=== PATIENT | male | born 2000 | race Caucasian/White ===

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

== ENCOUNTER 2022-05-27 14:42 | Emergency (ER) | payer BC, SELFPAY ==
[2022-05-27] VITALS (24 sets, daily range): BP systolic 131–175; BP diastolic 68–87; PULSE 79–109; RESP 10–28; TEMP 36.6–37.1; O2SAT 94–100
--- NOTE | 2022-05-27 14:45 | DI.RAD_ITS ---
Exam(s) XR CHEST 2V PA LATERAL EXAM: XR CHEST 2V PA LATERAL CLINICAL HISTORY: Left side pain, R/O Pneumo TECHNIQUE: 2D digital imaging was performed of the chest. Two images were obtained. PA and lateral views were obtained. COMPARISON: No exams were available for comparison FINDINGS: MEDIASTINUM: Normal. HEART: Normal. PULMONARY VASCULATURE: Normal. LUNGS: Clear. PLEURAL SPACE: No pleural effusion or pneumothorax. BONE:Within normal limits for the patient's age. OTHER FINDINGS:Normal. IMPRESSION: No acute pulmonary findings. DATA REPOSITORY: RADIATION DOSE DELIVERED:
--- NOTE | 2022-05-27 14:45 | RT.EKG_ITS ---
APPROVED REPORT Exam: Resting ECG Reason for Exam: chest pain Patient Location: E HR:95 bpm ECG Measurements Heart Rate 95 AXIS SC 145 P 39 QRSd 85 QRS 44 QT 346 T 42 QTc 435 Conclusion Sinus rhythm...normal P axis, V-rate 60- 99 ST elev, probable normal early repol pattern...ST elevation, age<55. Sinus. Normal axis. No STEMI. I have reviewed and interpreted ECG and agree with software generated interpretation.
--- NOTE | 2022-05-27 15:07 | W.ED.GENAD ---
Discharge Plan Disposition Patient Disposition: HOME Condition: Stable Discharge Details Clinical Impression: Acute epigastric pain, Elevated liver transaminase level Primary Care Provider: Tim Muse ED Provider: Katt Agosto Home Meds and New Rx's Prescriptions: No Action No Known Home Meds Discharge Instructions Additional Instructions: Please follow-up for ultrasound with persistent discomfort Stay away from fatty foods, caffeine, tomato, and citrus until you are feeling symptomatically improved Follow-up with your doctor next week Have ordered you an outpatient ultrasound, with persistent pain I recommend following up for ultrasound imaging She develop fever, chills, uncontrolled vomiting, or with any new or worsening complaints, please present to the emergency department for reassessment Referrals: Tim Muse MD [Primary Care Provider] - Discharge Data Discharge Date/Time-TO BE ENTERED AT DEPARTURE: 05/27/22 17:01 Medical Decision Making <Nancy Brown NP - Last Filed: 05/28/22 09:13> 21-year-old male presents to the ER with a chief complaint of sudden onset of midepigastric upper abdominal pain which occurred just prior to arrival. Patient reports that he was sitting when this started he does endorse some shortness of breath with the pain. He rates it at an 8 out of 10 positive nausea no vomiting no diarrhea. He describes pain as a pressure denies any radiation. Does have surgical history of appendectomy and a hernia repair at age 4. Denies smoking no drugs or alcohol. Upon initial presentation patient appears anxious, mildly tachypneic, lung sounds auscultated bilaterally with no wheezing no stridor. Cardiac work-up ordered including D-dimer and lipase. Chest x-ray to rule out pneumothorax. EKG obtained by department staff upon initial presentation. Differential diagnosis includes but not limited to PE, pneumothorax, CAD, cholecystitis, cholelithiasis, GERD, gas Initial work-up largely within normal limits no leukocytosis absolute neutrophils 6.8 CMP largely within normal limits anion gap 12.7 glucose 109 AST is 75 alk phos is 129 initial troponin within normal limits lipase within normal limits 128. Chest x-ray shows no pneumothorax no acute abnormality. EKG shows repolarization abnormality. Please see official report no old EKG available for review. Care is to be handed off to oncoming provider STEPHEN Stanley pending D-dimer and further imaging if warranted. Discussed patient case in details with her. Will consider chest CT and/or CT abdomen pelvis if continued pain. Lab Data Lab results reviewed: Yes I reviewed the patient's lab results. Labs: Laboratory Tests Range/Units 05/27/22 05/27/22 05/27/22 15:10 15:10 15:10 WBC (4.4-10.8) 10^3/uL 9.83 RBC (4.36-5.78) 10^6/uL 4.91 Hgb (13.5-17.5) g/dL 14.7 Hct (40.0-50.0) % 43.4 MCV (80-95) fL 88 MCH (27.0-33.0) pg 29.9 MCHC (32.0-36.0) % 33.9 RDW (11.8-14.1) % 12.8 Plt Count (130-400) 10^3/uL 244 MPV (8.0-11.0) fL 10.4 Immature Gran % 0.3 Neutrophils % 69.3 Lymphocytes % 20.3 Monocytes % 6.6 Eosinophils % 2.8 Basophils % 0.7 Nucleated RBC % (0.0-0.3) % 0.0 Absolute Neutrophils (1.2-6.7) 10^3/uL 6.80 H Absolute Lymphocytes (1.2-3.4) 10^3/uL 2.00 Absolute Monocytes (0.1-0.8) 10^3/uL 0.65 Absolute Eosinophils (0.0-0.7) 10^3/uL 0.28 Absolute Basophils (0.0-0.2) 10^3/uL 0.07 D-Dimer (<500) ng/mlFEU < 75 Sodium (136-145) mmol/L 143 Potassium (3.5-5.1) mmol/L 3.9 Chloride (98-107) mmol/L 106 Carbon Dioxide (21.0-32.0) mmol/L 24.3 Anion Gap (3-11) mmol/L 12.7 H BUN (7-18) mg/dL 18 Creatinine (0.70-1.30) mg/dL 1.2 Estimated GFR/1.73 m2 (mL/min/1.73m2) >= 60.00 Glucose (74-106) mg/dL 109 H Calcium (8.5-10.1) mg/dL 9.5 Magnesium (1.8-2.4) mg/dL 1.9 Total Bilirubin (0.2-1.0) mg/dL 0.3 AST (15-37) U/L 75 H ALT (16-63) U/L 51 Alkaline Phosphatase (46-116) U/L 129 H Troponin I (<or=60) ng/L < 50 Total Protein (6.4-8.2) g/dL 7.9 Albumin (3.4-5.0) g/dL 4.3 Lipase (73-393) U/L 128 Range/Units 05/27/22 18:07 WBC (4.4-10.8) 10^3/uL RBC (4.36-5.78) 10^6/uL Hgb (13.5-17.5) g/dL Hct (40.0-50.0) % MCV (80-95) fL MCH (27.0-33.0) pg MCHC (32.0-36.0) % RDW (11.8-14.1) % Plt Count (130-400) 10^3/uL MPV (8.0-11.0) fL Immature Gran % Neutrophils % Lymphocytes % Monocytes % Eosinophils % Basophils % Nucleated RBC % (0.0-0.3) % Absolute Neutrophils (1.2-6.7) 10^3/uL Absolute Lymphocytes (1.2-3.4) 10^3/uL Absolute Monocytes (0.1-0.8) 10^3/uL Absolute Eosinophils (0.0-0.7) 10^3/uL Absolute Basophils (0.0-0.2) 10^3/uL D-Dimer (<500) ng/mlFEU Sodium (136-145) mmol/L Potassium (3.5-5.1) mmol/L Chloride (98-107) mmol/L Carbon Dioxide (21.0-32.0) mmol/L Anion Gap (3-11) mmol/L BUN (7-18) mg/dL Creatinine (0.70-1.30) mg/dL Estimated GFR/1.73 m2 (mL/min/1.73m2) Glucose (74-106) mg/dL Calcium (8.5-10.1) mg/dL Magnesium (1.8-2.4) mg/dL Total Bilirubin (0.2-1.0) mg/dL AST (15-37) U/L ALT (16-63) U/L Alkaline Phosphatase (46-116) U/L Troponin I (<or=60) ng/L Cancelled Total Protein (6.4-8.2) g/dL Albumin (3.4-5.0) g/dL Lipase (73-393) U/L <STEPHEN Stanley - Last Filed: 05/27/22 21:39> 21-year-old male presents to the ER with a chief complaint of sudden onset of midepigastric upper abdominal pain which occurred just prior to arrival. Patient reports that he was sitting when this started he does endorse some shortness of breath with the pain. He rates it at an 8 out of 10 positive nausea no vomiting no diarrhea. He describes pain as a pressure denies any radiation. Does have surgical history of appendectomy and a hernia repair at age 4. Denies smoking no drugs or alcohol. Upon initial presentation patient appears anxious, mildly tachypneic, lung sounds auscultated bilaterally with no wheezing no stridor. Cardiac work-up ordered including D-dimer and lipase. Chest x-ray to rule out pneumothorax. EKG obtained by department staff upon initial presentation. Differential diagnosis includes but not limited to PE, pneumothorax, CAD, cholecystitis, cholelithiasis, GERD, gas Initial work-up largely within normal limits no leukocytosis absolute neutrophils 6.8 CMP largely within normal limits anion gap 12.7 glucose 109 AST is 75 alk phos is 129 initial troponin within normal limits lipase within normal limits 128. Chest x-ray shows no pneumothorax no acute abnormality. EKG shows repolarization abnormality. Please see official report no old EKG available for review. Care is to be handed off to oncoming provider STEPHEN Stanley pending D-dimer and further imaging if warranted. Discussed patient case in details with her. Will consider chest CT and/or CT abdomen pelvis if continued pain. [facility] care accepted in transition from Nancy Shea nurse practitioner D-dimer is negative Patient feeling symptomatic improvement, I reassessed him and his abdomen is nontender He declines any additional intervention at this time He is instructed to follow-up for outpatient ultrasound, he is given a referral form for right upper quadrant ultrasound as his AST is mildly elevated Return precautions discussed and patient expressed understanding HPI <Nancy Brown NP - Last Filed: 05/28/22 09:13> General Mode of arrival: ambulatory. Date/Time Provider Initiated Documentation: 05/27/22 14:48. Limitations to Documentation: no limitations. Information obtained by: patient, RN notes reviewed and old records reviewed. HPI Narrative: 21-year-old male presents to the ER with a chief complaint of sudden onset of midepigastric upper abdominal pain which occurred just prior to arrival. Patient reports that he was sitting when this started he does endorse some shortness of breath with the pain. He rates it at an 8 out of 10 positive nausea no vomiting no diarrhea. He describes pain as a pressure denies any radiation. Does have surgical history of appendectomy and a hernia repair at age 4. Denies smoking no drugs or alcohol. Upon initial presentation patient appears anxious, mildly tachypneic, lung sounds auscultated bilaterally with no wheezing no stridor. Related Data Home Medications Medication Instructions Recorded Confirmed Unknown [No Known Home Meds] 04/12/19 04/12/19 Allergies Allergy/AdvReac Type Severity Reaction Status Date / Time No Known Allergies Allergy Unverified 05/27/22 15:02 General Stated Complaint: Chest Pain BALDEMAR: 2 Review of Systems <Nancy Brown NP - Last Filed: 05/28/22 09:13> All systems reviewed & are unremarkable except as noted in HPI and below Cardiovascular Cardiovascular: Reports as per HPI, Denies chest pain, Denies leg edema and Reports dyspnea Respiratory Respiratory: Denies cough, Reports dyspnea, Denies stridor and Denies wheezing Gastrointestinal Gastrointestinal: Reports abdominal pain, Denies diarrhea, Reports nausea and Denies vomiting Genitourinary Genitourinary: Denies genital pain, Denies dysuria and Denies urinary frequency Allergic/Immunologic Allergic/Immunologic: Denies wheezing [facility] <Nancy Brown NP - Last Filed: 05/28/22 09:13> All Active Problems (Updated 05/27/22 @ 16:50 by STEPHEN Stanley) Acute epigastric pain (Acute) Elevated liver transaminase level (Acute) Social History Smoking/Tobacco Use Status: Never Smoking risk assessment performed?: Yes Alcohol Intake: never Substance use type: does not use Do you feel safe at home: Yes Do you feel safe in your relationship?: Yes Exam <Nancy Brown NP - Last Filed: 05/28/22 09:13> Narrative Exam Narrative: Constitutional: Alert and oriented x3. Appears stated age. Normal body habitus. Head: Normocephalic, no trauma. Eyes: Pupils PERRL, Red reflex noted, EOM's intact. Eyelids symmetrical without lesions, discharge, or swelling. ENT: Bilateral TM's WNL, External ear normal to inspection, no mastoid TTP, swelling, or erythema, Nasal turbinates WNL, no nasal discharge. Normal dentition, Posterior pharynx WNL, no exudate. Chest: RRR, Normal S1, S2, distal pulses intact. Resp: Lungs clear to auscultation bilaterally, no wheezes, rales, or rhonchi. Abdomen: Soft, non-distended, Normoactive bowel sounds all 4 quads. Musculoskeletal: Normal gait, 5/5 strength to all four extremities. Skin: No suspicious rashes or lesions. Capillary refill less than 2 sec. Neurologic: Cranial nerves II-XII intact. Alert and oriented x 3. Motor: No deficits noted. Sensory: Intact bilaterally all 4 extremities. Reflexes: DTR's intact bilaterally.. Hematologic/Lymphatic: No ecchymosis, no lymphadenopathy. Course <Nancy Brown NP - Last Filed: 05/28/22 09:13> Vital Signs Vital signs: Vital Signs Temperature 37.1 C 05/27/22 14:58 Pulse 97 H 05/27/22 14:58 Respiratory Rate 22 05/27/22 14:58 Blood Pressure 175/87 H 05/27/22 14:58 Pulse Oximetry 100 05/27/22 14:58 Temperature 37.1 C 05/27/22 14:58 Pulse 97 H 05/27/22 14:58 Respiratory Rate 22 05/27/22 14:58 Blood Pressure 175/87 H 05/27/22 14:58 Blood Pressure Position Supine 05/27/22 14:58 Pulse Oximetry 100 05/27/22 14:58 Oxygen Delivery Method Room Air 05/27/22 14:58 Oxygen Flow Rate 0 05/27/22 14:58 Pain Level 8 05/27/22 14:58 Sign Out <Nancy Brown NP - Last Filed: 05/28/22 09:13> Sign Out Data: Sign Out Comment: Mid-epigastric abd/ chest Pressure began acutely. Pending D-dimer. Consider CT chest or CT abdomen pelvis. Last updated by Nancy Brown NP at 05/27/22 15:50
[2022-05-27 15:19] LABS: Abs Immature Grans 0.03 10^3/uL (0.0-0.06); Absolute Basophil Count 0.07 10^3/uL (0.0-0.2); Absolute Eosinophil Count 0.28 10^3/uL (0.0-0.7); Absolute Monocyte Count 0.65 10^3/uL (0.1-0.8); Basophils % 0.7; Eosinophils % 2.8; HCT 43.4 % (40.0-50.0); HGB 14.7 g/dL (13.5-17.5); Immature Grans % 0.3; Lymphocytes % 20.3; MCH 29.9 pg (27.0-33.0); MCHC 33.9 % (32.0-36.0); MCV 88 fL (80-95); MPV 10.4 fL (8.0-11.0); Monocytes % 6.6; Neutrophils % 69.3; Platelet Count 244 10^3/uL (130-400); RBC 4.91 10^6/uL (4.36-5.78); RDW 12.8 % (11.8-14.1); RDW-SD 41.8 fL; WBC 9.83 10^3/uL (4.4-10.8)
[2022-05-27 15:37] LABS: ALT 51 U/L (16-63); AST 75 U/L (15-37); Albumin 4.3 g/dL (3.4-5.0); Alkaline Phosphatase 129 U/L (46-116); Anion Gap 12.7 mmol/L (3-11); BUN 18 mg/dL (7-18); Bilirubin, Total 0.3 mg/dL (0.2-1.0); CO2 24.3 mmol/L (21.0-32.0); CREATININE 1.2 mg/dL (0.70-1.30); Calcium 9.5 mg/dL (8.5-10.1); Chloride 106 mmol/L (98-107); Glucose 109 mg/dL (74-106); Lipase 128 U/L (73-393); Magnesium 1.9 mg/dL (1.8-2.4); Potassium 3.9 mmol/L (3.5-5.1); Sodium 143 mmol/L (136-145); Total Protein 7.9 g/dL (6.4-8.2); Troponin I < 50 ng/L (<or=60)
--- NOTE | 2022-05-27 15:42 | DI.VRAD_ITS ---
PROCEDURE INFORMATION: Exam: XR Chest Exam date and time: 05/27/2022 3:26 PM Age: 21 years old Clinical indication: Chest wall pain; Patient HX: L side pain, R/O pneumo TECHNIQUE: Imaging protocol: Radiologic exam of the chest. Views: 2 views. COMPARISON: No relevant prior studies available. FINDINGS: Lungs: Unremarkable. No consolidation. Pleural spaces: Unremarkable. No pleural effusion. No pneumothorax. Heart/Mediastinum: Unremarkable. No cardiomegaly. Bones/joints: Unremarkable. IMPRESSION: No acute findings. Dictated and Authenticated by: Nelida Cruz MD. Ordering:RAYMOND Cruz MD
[2022-05-27] MEDS: Aspirin 81 MG CHEW 324 MG CH (15:47)
[2022-05-27 16:00] LABS: D-Dimer < 75 ng/mlFEU (<500)
--- NOTE | 2022-05-27 16:57 | NUR.NOTE ---
Nursing Note: Faxed to [facility] request for RUQ abd US for epigastric pain/abnormal LFT's; to follow up in ED, to be done 2 to 3 days.
== END 2022-05-27 17:01 | disposition home or self-care (01) ==
PROVIDERS: Registered Nurse Emergency; Emergency Provider Physician Assistant; PCP Internal Medicine
DX: R10.13 Epigastric pain (principal); R07.9 Chest pain, unspecified; R06.02 Shortness of breath; R74.01 Elevation of levels of liver transaminase levels
CPT/HCPCS: 36415; 80053; 83690; 93005; 99284; 71046; 83735; 84484; 85025; 85379; 93010; 99283

== ENCOUNTER 2024-04-28 17:43 | Outpatient (REF) | payer BC, SELFPAY ==
[2024-04-28 21:24] LABS: Abs Immature Grans 0.03 10^3/uL (0.0-0.06); Absolute Basophil Count 0.06 10^3/uL (0.0-0.2); Absolute Eosinophil Count 0.15 10^3/uL (0.0-0.7); Absolute Lymphocyte Count 1.84 10^3/uL (1.2-3.4); Absolute Neutrophil Count 6.02 10^3/uL (1.2-6.7); Basophils % 0.7 %; Eosinophils % 1.7 %; HCT 43.5 % (40.0-50.0); HGB 14.5 g/dL (13.5-17.5); Immature Grans % 0.3 %; Lymphocytes % 20.9 %; MCH 29.7 pg (27.0-33.0); MCHC 33.3 % (32.0-36.0); MCV 89 fL (80-95); MPV 11.1 fL (8.0-11.0); Neutrophils % 68.4 %; Platelet Count 329 10^3/uL (130-400); RBC 4.89 10^6/uL (4.36-5.78); RDW 12.8 % (11.8-14.1); RDW-SD 42.4 fL
[2024-04-28 21:38] LABS: ALT 145 U/L (16-63); AST 200 U/L (15-37); Albumin 4.4 g/dL (3.4-5.0); Alkaline Phosphatase 110 U/L (46-116); Anion Gap 13.5 mmol/L (3-11); BUN 12 mg/dL (7-18); Bilirubin, Total 0.8 mg/dL (0.2-1.0); CO2 26.5 mmol/L (21.0-32.0); CREATININE 1.1 mg/dL (0.70-1.30); Chloride 102 mmol/L (98-107); Estimated GFR 97.95 (mL/min/1.73m2); Glucose 89 mg/dL (74-106); Potassium 4.4 mmol/L (3.5-5.1); Sodium 142 mmol/L (136-145); Total Protein 8.3 g/dL (6.4-8.2)
[2024-05-02 14:59] LABS: Anaplasma phagocytophilum Negative (Negative); B. miyamotoi PCR Negative (Negative); Babesia divergens/MO-1 Negative (Negative); Babesia duncani Negative (Negative); Babesia microti Negative (Negative); Ehrlichia chaffeensis Negative (Negative); Ehrlichia ewingii/canis Negative (Negative); Ehrlichia muris eauclairensis Negative (Negative)
== END 2024-04-28 17:44 | disposition home or self-care (01) ==
LOC: NCHCN 17:43
PROVIDERS: PCP Internal Medicine; Visit Provider Family Medicine
DX: R50.9 Fever, unspecified (principal); R79.89 Other specified abnormal findings of blood chemistry; Z11.8 Encounter for screening for other infectious and parasitic diseases
CPT/HCPCS: 80053; 87798; 85025

== ENCOUNTER 2024-05-01 18:26 | Emergency (ER) | payer BC, SELFPAY ==
[2024-05-01 18:34] VITALS: BP 183/103; PULSE 103; RESP 18; TEMP 36.3; O2SAT 98
--- NOTE | 2024-05-01 19:07 | ED.GENADUL_ITS ---
Discharge Plan Disposition Patient Disposition: Home Condition: Stable Discharge Details Clinical Impression: Duran's palsy Primary Care Provider: Tim Muse ED Provider: Darin Brush Home Meds and New Rx's Prescriptions: New prednisone 20 mg tablet 40 mg PO DAILY 6 Days Qty: 12 0RF doxycycline hyclate 100 mg capsule 100 mg PO BID 21 Days Qty: 42 0RF valacyclovir 1 gram tablet 1,000 mg PO TID 7 Days Qty: 21 0RF Discharge Instructions Instructions: Duran's palsy, Doxycycline, Prednisone, Valacyclovir Additional Instructions: You were seen in the emergency department for right-sided facial paralysis. 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 Please follow-up with your primary care for results from your Lyme testing, if negative you can discuss with them about discontinuing the doxycycline. I am also prescribing you prednisone which will help with the inflammation of your fa cial nerve that is causing your facial paralysis. I am also worried that with your history of HSV and possibility for emerging shingles that you can have facial paralysis before any shingles lesions that we should empirically treat you with valacyclovir 3 times per day for 7 days. Please return to the emergency department for any worsening symptoms, any painful lesions that appear, any loss of vision. Referrals: Tim Muse MD [Primary Care Provider] - HPI General Date/Time Provider Initiated Documentation: 05/01/24 18:27 . HPI Narrative: 23 year-old female presents to ED today by POV/ambulating with a chief complaint of R sided facial drooping with forehead involvement with onset around 1000 today. Patient recently got Lyme/Tick testing done for multiple tick bites this spring. Quality described as no painful lesions, no ear pain, no eye pain, mild blurred vision he equates to his eye being dry, no radiation to known history of chicken pox- he was vaccinated, endorses history of oral cold sores, denies known rashes after tick bites, denies palpitations/chest pain, syncope. Severity is described as moderate. Palliating factors include nothing specific attempted. Provoking factors include nothing specific. Events leading up to the incident/Associated Symptoms: Patient got his tick panel 2 days ago, does not have results. Patient not anticoagulated. Related Data Home Medications Medication Instructions Recorded Confirmed doxycycline hyclate 100 mg capsule 100 mg PO BID 21 days #42 caps 05/01/24 prednisone 20 mg tablet 40 mg (2 x 20 mg) PO DAILY Duran's 05/01/24 Palsy 6 days #12 tabs valacyclovir 1 gram tablet 1,000 mg PO TID 7 days #21 tabs 05/01/24 Previous Rx's Medication Instructions Recorded doxycycline hyclate 100 mg capsule 100 mg PO BID 21 days #42 caps 05/01/24 prednisone 20 mg tablet 40 mg (2 x 20 mg) PO DAILY Duran's 05/01/24 Palsy 6 days #12 tabs valacyclovir 1 gram tablet 1,000 mg PO TID 7 days #21 tabs 05/01/24 Allergies Allergy/AdvReac Type Severity Reaction Status Date / Time No Known Allergies Allergy Unverified 05/01/24 19:23 General Stated Complaint: GenMedical BALDEMAR: 3 Review of Systems All systems reviewed & are unremarkable except as noted in HPI and below Exam Narrative Exam Narrative: GENERAL APPEARANCE: Well-nourished, non-toxic, awake and alert, atraumatic, no acute distress. SKIN: Warm, pink, dry, intact, without rashes/lesions/ulcerations. HEAD: Normocephalic, atraumatic, normal hair distribution for gender/age. EYES: Pupils PERRLA, EOMs intact without nystagmus, normal conjunctiva, no exudates on lids/lashes, no corneal dendrites or lesions or haziness on fluorescein exam, vision grossly intact. ENT: Nares patent, no circumoral cyanosis, no facial swelling, no vesicular ear lesions around the ear or in R ear canal, no facial lesions of HSV NECK: Supple, trachea midline, painless cervical ROM. LUNGS/CHEST: Lungs CTA bilaterally- no rhonchi/rales/wheezes diffusely, non- labored respirations, normal A/P diameter, symmetrical expansion, no chest wall deformity HEART (CV/PV): Regular rate and rhythm without murmur, no peripheral edema, no JVD. ABDOMEN: Soft, non-distended, no guarding. MSK: Normal ROM, no swelling/deformity to bilateral UEs or LEs, moving all extremities without weakness, no cyanosis, spine midline without tenderness, normal curvature. NEURO: Mental Status AAOx4 - alert to person, place, time, events R facial droop, w/ forehead involvement- consistent with Duran's Palsy Motor: No focal weakness - strength 5/5 in bilateral UEs and LEs, proximal and distal, symmetric. Sensory: sensation intact to light touch globally. Gait normal: patient ambulated without ataxia into ED room. PSYCH: euthymic, cooperative, pleasant, appropriate speech Course Vital Signs Vital signs: Vital Signs Temperature 36.3 C L 05/01/24 18:34 Pulse 103 H 05/01/24 18:34 Respiratory Rate 18 05/01/24 18:34 Blood Pressure 183/103 H 05/01/24 18:34 Pulse Oximetry 98 05/01/24 18:34 Temperature 36.3 C L 05/01/24 18:34 Temperature Source Temporal Artery Scan 05/01/24 18:34 Pulse 103 H 05/01/24 18:34 Respiratory Rate 18 05/01/24 18:34 Blood Pressure 183/103 H 05/01/24 18:34 Blood Pressure Position Sitting 05/01/24 18:34 Pulse Oximetry 98 05/01/24 18:34 Oxygen Delivery Method Room Air 05/01/24 18:34 Oxygen Flow Rate 0 05/01/24 18:34 Medical Decision Making This dictation utilizes [id number] dictation software and may contain unedited grammatical errors. 23 year-old female presents to ED today by POV/ambulating with a chief complaint of R sided facial drooping with forehead involvement with onset around 1000 today. Patient recently got Lyme/Tick testing done for multiple tick bites this spring. Quality described as no painful lesions, no ear pain, no eye pain, mild blurred vision he equates to his eye being dry, no radiation to known history of chicken pox- he was vaccinated, endorses history of oral cold sores, denies known rashes after tick bites, denies palpitations/chest pain, syncope. Severity is described as moderate. Palliating factors include nothing specific attempted. Provoking factors include nothing specific. Events leading up to the incident /Associated Symptoms: Patient got his tick panel 2 days ago, does not have results. Patients' medical history: Negative, otherwise healthy. Family and social history: Noncontributory. Pertinent exam findings / vital signs include normal corneal examination on fluorescein exam, no dendrites or uveitis seen, no right ear lesions or vesicular lesions on the face or postauricular area, has right-sided facial droop with forehead involvement consistent with Duran's palsy otherwise neuro intact. Differential / pathologies of concern include Duran's palsy, secondary to Lyme versus HSV versus VZV, not stroke. Diagnostic studies of: -none. Interventions of: -Started patient on prednisone, valacyclovir and doxycycline for empiric coverage of all pathologies, he has pending tick testing. 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 I decided out of an abundance of caution to treat him for all likely pathologies in the situation for his Duran's palsy including coverage for [place] Boy[place] syndrome as well as HSV though there were no corneal lesions or vesicular lesions in or around the ear or eye, as well as starting 21-day treatment for doxycycline until he gets his results of tick panel and provided a prescription for prednisone. I stressed strict return criteria for any developing lesions, worsening vision changes, severe increase in pain. Findings not consistent with active [place] syndrome, visual compromise, HSV ophthalmicus. Disposition of Duran's palsy. Patient verbalized understanding of the plan and return to ED criteria and engaged in shared decision making. Medical Records Medical records reviewed: Yes I reviewed the patient's medical records. Quality:SDOH Health Related Social Needs: No Data to Display PFSH All Active Problems (Updated 05/01/24 @ 19:32 by STEPHEN Beckman) Duran's palsy (Acute) Social History Smoking/Tobacco Use Status: Never Smoking risk assessment performed?: Yes Alcohol Intake: never Drug use: Never Substance use type: does not use Do you feel safe at home: Yes Do you feel safe in your relationship?: Yes
[2024-05-01 19:21] VITALS: BP 183/103; PULSE 103; RESP 18; TEMP 36.3; O2SAT 98
[2024-05-01 19:25] VITALS: BP 145/87; PULSE 92; RESP 13; O2SAT 99
[2024-05-01] MEDS: Fluorescein STRIPS 100/BOX 1 MG OP (19:28)
[2024-05-01] MEDS: predniSONE 20 MG TAB 60 MG PO (20:18)
[2024-05-01] MEDS: valACYclovir 1,000 MG TAB 1000 MG PO (20:18)
[2024-05-01] MEDS: Doxycycline Hyclate 100 MG CAP PO (20:18)
== END 2024-05-01 20:18 | disposition home or self-care (01) ==
PROVIDERS: Emergency Provider Physician Assistant; PCP Internal Medicine
DX: G51.0 Bell's palsy (principal); Z86.61 Personal history of infections of the central nervous system
CPT/HCPCS: 99283; J7512

== ENCOUNTER 2024-05-08 15:45 | Outpatient (REF) | payer BC, SELFPAY ==
[2024-05-08 14:30] LABS: ALT 38 U/L (16-63); AST 17 U/L (15-37); Albumin 4.3 g/dL (3.4-5.0); Alkaline Phosphatase 120 U/L (46-116); Anion Gap 9.7 mmol/L (3-11); BUN 14 mg/dL (7-18); Bilirubin, Total 0.46 mg/dL (0.2-1.0); CO2 26.3 mmol/L (21.0-32.0); CREATININE 1.2 mg/dL (0.70-1.30); Calcium 9.6 mg/dL (8.5-10.1); Chloride 105 mmol/L (98-107); Estimated GFR 88.24 (mL/min/1.73m2); Glucose 97 mg/dL (74-106); Potassium 4.3 mmol/L (3.5-5.1); Sodium 141 mmol/L (136-145)
[2024-05-09 09:52] LABS: Lyme Ab w Rflx to Lyme Confirm Positive (Negative)
[2024-05-09 15:39] LABS: Lyme IgG Ab Positive (Negative); Lyme IgM Ab Positive (Negative)
== END 2024-05-08 15:46 | disposition home or self-care (01) ==
LOC: NCHCN 15:45
PROVIDERS: PCP Internal Medicine; Visit Provider Family Medicine
DX: G51.0 Bell's palsy (principal); R74.01 Elevation of levels of liver transaminase levels
CPT/HCPCS: 80053; 86617; 86618